=== PATIENT | female | born 1990 | race American Indian/Alaskan Native ===

== ENCOUNTER 2016-11-24 03:14 | Emergency (ER) | payer MEDICAID ==
[2016-11-24 02:34] LABS: Bilirubin,Urine NEG (Negative); Blood,Urine NEG (Negative); Ketones,Urine 20 mg/dL (Negative); Leukocyte Esterase,Urine NEG (Negative); Mucus,Urine 3+ /HPF; Nitrite,Urine NEG (Negative); Urobilinogen,Urine < 2.0 mg/dL (<2.0)
[~2016-11-24 03:14] MED LIST: LACTATED RINGERS 500 ML IV ONE
[2016-11-24 04:38] LABS: Basophils % (Auto) 0.7 % (0.0-1.8); Eosinophils % (Auto) 5.3 % (0.0-4.3); Hematocrit 35.6 % (30.3-42.9); Mean Corpuscular HGB Conc 31 % (30-34); Mean Corpuscular Volume 73 fl (79-97); Platelet Count 321 K/mm3 (140-440); Red Blood Count 4.87 M/mm3 (3.65-5.03); Red Cell Distribution Width 16.7 % (13.2-15.2); White Blood Count 13.3 K/mm3 (4.5-11.0)
[2016-11-24 04:44] LABS: Mean Corpuscular Hemoglobin 23 pg (28-32)
[2016-11-24 04:46] LABS: Anion Gap 20 mmol/L; Blood Urea Nitrogen 6 mg/dL (7-17); Carbon Dioxide 20 mmol/L (22-30); Chloride 103.2 mmol/L (98-107); Glucose 84 mg/dL (65-100); Sodium 139 mmol/L (137-145)
[2016-11-24] MEDS ORDERED: PROVENTIL IH ONE (05:16)
[2016-11-24] MEDS ORDERED: ATROVENT IH ONE (05:16)
--- NOTE | 2016-11-24 06:22 | Emergency Department Report ---
HPI - General Chief Complaint: Dyspnea/Respdistress Time Seen by Provider: 11/24/16 06:08 - HPI HPI: Room 22 The patient is a 26-year-old female presenting with a chief complaint shortness of breath. The patient states she "caught a cold" about 2 weeks ago with symptoms including rhinorrhea cough productive of yellow sputum and subjective fever. The patient states yesterday she developed increased work of breathing which usually happens whenever she catches a cold. The patient received nebulized prior to my arrival and states she feels better. Patient denies any complaints currently. Patient denies any history of chest pain, abdominal pain or vaginal bleeding Location: Lungs Duration: [see above] Quality: Increased work of breathing Severity: Moderate Modifying factors: [see above] Context: [see above] Mode of transportation: Unknown ED Past Medical Hx - Past Medical History Previous Medical History?: Yes Hx Asthma: Yes (LAST ATTACK WAS 10YR OLD; NO INHALER @HOME) - Family History Family history: no significant - Social History Smoking Status: Never Smoker Substance Use Type: None - Medications Home Medications: Home Medications Medication Instructions Recorded Confirmed Last Taken Type ALBUTEROL Inhaler [Proair] 2 puff IH QID PRN #1 inhalation 11/24/16 Unknown Rx Azithromycin [Zithromax Z-EUGENE] 0 mg PO DAILY #6 tab 11/24/16 Unknown Rx Vit-Fe Fumar-FA [ 1 tab PO QDAY 11/24/16 11/24/16 11/22/16 History Vitamin] ED Review of Systems ROS: Stated complaint: Other details as noted in HPI Comment: All other systems reviewed and negative Constitutional: fever (subjective) Eyes: denies: eye pain, eye discharge, vision change ENT: other (rhinorrhea) Respiratory: cough, wheezing, other (increased work of breathing) Cardiovascular: denies: chest pain, palpitations Endocrine: no symptoms reported Gastrointestinal: denies: abdominal pain, nausea, diarrhea Genitourinary: denies: urgency, dysuria, discharge Musculoskeletal: denies: back pain, joint swelling, arthralgia Skin: denies: rash, lesions Neurological: denies: headache, weakness, paresthesias Psychiatric: denies: anxiety, depression Hematological/Lymphatic: denies: easy bleeding, easy bruising Physical Exam - Physical Exam Vital Signs: Vital Signs 11/24/16 11/24/16 11/24/16 00:58 00:59 01:03 Temperature Pulse Rate 115 H 115 H 117 H Pulse Rate [ Bilateral Throughout] Respiratory Rate Respiratory Rate [Bilateral Throughout] Blood Pressure 133/71 Blood Pressure [Right] O2 Sat by Pulse 95 94 Oximetry 11/24/16 11/24/16 11/24/16 01:04 01:05 01:08 Temperature 98.1 F Pulse Rate 116 H 110 H Pulse Rate [ Bilateral Throughout] Respiratory 22 Rate Respiratory Rate [Bilateral Throughout] Blood Pressure Blood Pressure [Right] O2 Sat by Pulse 94 93 Oximetry 11/24/16 11/24/16 11/24/16 01:09 01:13 01:16 Temperature Pulse Rate 114 H 116 H 114 H Pulse Rate [ Bilateral Throughout] Respiratory Rate Respiratory Rate [Bilateral Throughout] Blood Pressure Blood Pressure [Right] O2 Sat by Pulse 93 95 93 Oximetry 11/24/16 11/24/16 11/24/16 01:18 01:22 01:34 Temperature Pulse Rate 111 H 114 H 121 H Pulse Rate [ Bilateral Throughout] Respiratory Rate Respiratory Rate [Bilateral Throughout] Blood Pressure Blood Pressure [Right] O2 Sat by Pulse 94 0 L 93 Oximetry 11/24/16 11/24/16 11/24/16 01:39 01:40 01:44 Temperature Pulse Rate 117 H 120 H 113 H Pulse Rate [ Bilateral Throughout] Respiratory Rate Respiratory Rate [Bilateral Throughout] Blood Pressure Blood Pressure [Right] O2 Sat by Pulse 94 94 95 Oximetry 11/24/16 11/24/16 11/24/16 01:46 01:49 01:54 Temperature Pulse Rate 120 H 121 H 108 H Pulse Rate [ Bilateral Throughout] Respiratory Rate Respiratory Rate [Bilateral Throughout] Blood Pressure Blood Pressure [Right] O2 Sat by Pulse 93 96 97 Oximetry 11/24/16 11/24/16 11/24/16 01:59 02:04 02:09 Temperature Pulse Rate 107 H 113 H 115 H Pulse Rate [ Bilateral Throughout] Respiratory Rate Respiratory Rate [Bilateral Throughout] Blood Pressure Blood Pressure [Right] O2 Sat by Pulse 96 97 97 Oximetry 11/24/16 11/24/16 11/24/16 02:14 02:16 02:19 Temperature Pulse Rate 107 H 115 H 109 H Pulse Rate [ Bilateral Throughout] Respiratory Rate Respiratory Rate [Bilateral Throughout] Blood Pressure Blood Pressure [Right] O2 Sat by Pulse 97 94 96 Oximetry 11/24/16 11/24/16 11/24/16 02:24 02:29 02:34 Temperature Pulse Rate 110 H 118 H 109 H Pulse Rate [ Bilateral Throughout] Respiratory Rate Respiratory Rate [Bilateral Throughout] Blood Pressure Blood Pressure [Right] O2 Sat by Pulse 97 98 97 Oximetry 11/24/16 11/24/16 11/24/16 02:39 02:44 02:49 Temperature Pulse Rate 111 H 105 H 107 H Pulse Rate [ Bilateral Throughout] Respiratory Rate Respiratory Rate [Bilateral Throughout] Blood Pressure Blood Pressure [Right] O2 Sat by Pulse 96 99 97 Oximetry 11/24/16 11/24/16 11/24/16 03:23 04:25 05:37 Temperature 98.1 F Pulse Rate 116 H 101 H Pulse Rate [ 89 Bilateral Throughout] Respiratory 24 20 Rate Respiratory 20 Rate [Bilateral Throughout] Blood Pressure 156/90 Blood Pressure 142/88 [Right] O2 Sat by Pulse 97 100 Oximetry 11/24/16 06:12 Temperature Pulse Rate Pulse Rate [ 110 H Bilateral Throughout] Respiratory Rate Respiratory 18 Rate [Bilateral Throughout] Blood Pressure Blood Pressure [Right] O2 Sat by Pulse Oximetry Physical Exam: GENERAL: The patient is well-developed well-nourished female lying on stretcher receiving nebulizer not appear to be in acute distress. [] HEENT: Normocephalic. Atraumatic. Extraocular motions are intact. Patient has moist mucous membranes. NECK: Supple. Trachea midline CHEST/LUNGS: Occasional rhonchi. There is no respiratory distress noted. HEART/CARDIOVASCULAR: Regular. There is no tachycardia. There is no gallop rub or murmur. ABDOMEN: Abdomen is soft, nontender. Patient has normal bowel sounds. The patient is gravid SKIN: There is no rash. There is no edema. There is no diaphoresis. NEURO: The patient is awake, alert, and oriented. The patient is cooperative. The patient has normal speech MUSCULOSKELETAL: There is no evidence of acute injury. ED Course Vital Signs 11/24/16 11/24/16 11/24/16 00:58 00:59 01:03 Temperature Pulse Rate 115 H 115 H 117 H Pulse Rate [ Bilateral Throughout] Respiratory Rate Respiratory Rate [Bilateral Throughout] Blood Pressure 133/71 Blood Pressure [Right] O2 Sat by Pulse 95 94 Oximetry 11/24/16 11/24/16 11/24/16 01:04 01:05 01:08 Temperature 98.1 F Pulse Rate 116 H 110 H Pulse Rate [ Bilateral Throughout] Respiratory 22 Rate Respiratory Rate [Bilateral Throughout] Blood Pressure Blood Pressure [Right] O2 Sat by Pulse 94 93 Oximetry 11/24/16 11/24/16 11/24/16 01:09 01:13 01:16 Temperature Pulse Rate 114 H 116 H 114 H Pulse Rate [ Bilateral Throughout] Respiratory Rate Respiratory Rate [Bilateral Throughout] Blood Pressure Blood Pressure [Right] O2 Sat by Pulse 93 95 93 Oximetry 11/24/16 11/24/16 11/24/16 01:18 01:22 01:34 Temperature Pulse Rate 111 H 114 H 121 H Pulse Rate [ Bilateral Throughout] Respiratory Rate Respiratory Rate [Bilateral Throughout] Blood Pressure Blood Pressure [Right] O2 Sat by Pulse 94 0 L 93 Oximetry 11/24/16 11/24/16 11/24/16 01:39 01:40 01:44 Temperature Pulse Rate 117 H 120 H 113 H Pulse Rate [ Bilateral Throughout] Respiratory Rate Respiratory Rate [Bilateral Throughout] Blood Pressure Blood Pressure [Right] O2 Sat by Pulse 94 94 95 Oximetry 11/24/16 11/24/16 11/24/16 01:46 01:49 01:54 Temperature Pulse Rate 120 H 121 H 108 H Pulse Rate [ Bilateral Throughout] Respiratory Rate Respiratory Rate [Bilateral Throughout] Blood Pressure Blood Pressure [Right] O2 Sat by Pulse 93 96 97 Oximetry 11/24/16 11/24/16 11/24/16 01:59 02:04 02:09 Temperature Pulse Rate 107 H 113 H 115 H Pulse Rate [ Bilateral Throughout] Respiratory Rate Respiratory Rate [Bilateral Throughout] Blood Pressure Blood Pressure [Right] O2 Sat by Pulse 96 97 97 Oximetry 11/24/16 11/24/16 11/24/16 02:14 02:16 02:19 Temperature Pulse Rate 107 H 115 H 109 H Pulse Rate [ Bilateral Throughout] Respiratory Rate Respiratory Rate [Bilateral Throughout] Blood Pressure Blood Pressure [Right] O2 Sat by Pulse 97 94 96 Oximetry 11/24/16 11/24/16 11/24/16 02:24 02:29 02:34 Temperature Pulse Rate 110 H 118 H 109 H Pulse Rate [ Bilateral Throughout] Respiratory Rate Respiratory Rate [Bilateral Throughout] Blood Pressure Blood Pressure [Right] O2 Sat by Pulse 97 98 97 Oximetry 11/24/16 11/24/16 11/24/16 02:39 02:44 02:49 Temperature Pulse Rate 111 H 105 H 107 H Pulse Rate [ Bilateral Throughout] Respiratory Rate Respiratory Rate [Bilateral Throughout] Blood Pressure Blood Pressure [Right] O2 Sat by Pulse 96 99 97 Oximetry 11/24/16 11/24/16 11/24/16 03:23 04:25 05:37 Temperature 98.1 F Pulse Rate 116 H 101 H Pulse Rate [ 89 Bilateral Throughout] Respiratory 24 20 Rate Respiratory 20 Rate [Bilateral Throughout] Blood Pressure 156/90 Blood Pressure 142/88 [Right] O2 Sat by Pulse 97 100 Oximetry 11/24/16 06:12 Temperature Pulse Rate Pulse Rate [ 110 H Bilateral Throughout] Respiratory Rate Respiratory 18 Rate [Bilateral Throughout] Blood Pressure Blood Pressure [Right] O2 Sat by Pulse Oximetry ED Medical Decision Making - Lab Data Result diagrams: 11/24/16 03:50 11/24/16 03:50 Laboratory Tests 11/24/16 11/24/16 11/24/16 01:25 03:50 03:50 WBC 13.3 H RBC 4.87 Hgb 11.0 Hct 35.6 MCV 73 L MCH 23 L MCHC 31 RDW 16.7 H Plt Count 321 Lymph % (Auto) 20.9 [place] % (Auto) 7.7 H Eos % (Auto) 5.3 H Baso % (Auto) 0.7 Lymph # 2.8 [place] # 1.0 H Eos # 0.7 H Baso # 0.1 Seg Neutrophils % 65.4 Seg Neutrophils # 8.7 H Sodium 139 Potassium 4.0 Chloride 103.2 Carbon Dioxide 20 L Anion Gap 20 BUN 6 L Creatinine 0.5 L Estimated GFR > 60 BUN/Creatinine Ratio 12.00 Glucose 84 Calcium 9.0 Troponin T < 0.010 Urine Color Yellow Urine Turbidity Clear Urine pH 5.0 Ur Specific [place] 1.034 H Urine Protein 100 mg/dl Urine Glucose (UA) Neg Urine Ketones 20 Urine Blood Neg Urine Nitrite Neg Urine Bilirubin Neg Urine Urobilinogen < 2.0 Ur Leukocyte Esterase Neg Urine WBC (Auto) 2.0 Urine RBC (Auto) 2.0 U Epithel Cells (Auto) < 1.0 Calcium Oxalate Crystal 3+ Urine Mucus 3+ Influenza negative - Differential Diagnosis URI, influenza, bronchitis, reactive airway disease Critical care attestation.: If time is entered above; I have spent that time in minutes in the direct care of this critically ill patient, excluding procedure time. ED Disposition Clinical Impression: Acute bronchitis, Disposition: DC-01 TO HOME OR SELFCARE Is pt being admited?: No Does the pt Need Aspirin: No Condition: Stable Instructions: Labor and Delivery General Instructions, Labor/ Labor Instructions, Movement (DC), Acute Bronchitis (ED) Additional Instructions: Return to the emergency department immediately should you develop worsening symptoms, fever, inability to tolerate food or liquid or any other concerns. Prescriptions: ALBUTEROL Inhaler [Proair] 2 puff IH QID PRN #1 inhalation PRN Reason: Shortness Of Breath Azithromycin [Zithromax Z-EUGENE] 0 mg PO DAILY #6 tab Referrals: PRIMARY CARE, [Primary Care Provider] - 7 Days Forms: [facility] Discharge Summary Time of Disposition: 07:58
[2016-11-24 11:28] VITALS: BP 111/75
== END 2016-11-24 08:40 | disposition home or self-care (01) ==
LOC: ED 03:14 → EDSTATUS 03:18 → ED 08:40
DX: O99.519 Diseases of the respiratory system complicating pregnancy, unspecified trimester (principal); J20.9 Acute bronchitis, unspecified; J45.909 Unspecified asthma, uncomplicated; Z3A.00 Weeks of gestation of pregnancy not specified
CPT/HCPCS: 36415; 59025; 80048; 81001; 84484; 85025; 87400; 93005; 93010; 94644; 99284

== ENCOUNTER 2017-03-11 07:32 | Inpatient (IN) | payer MEDICAID ==
[2017-03-11] MEDS ORDERED: ANCEF/STERILE WATER 2 GM/20 ML 2 GM/20 ML SYRINGE IV NR (08:00)
[2017-03-11] MEDS ORDERED: REGLAN IV NR (08:00)
[2017-03-11] MEDS ORDERED: BICITRA PO NR (08:00)
[2017-03-11] MEDS ORDERED: PITOCin/NS 20 UNIT/1000ML DRIP 20 UNITS/1,000 ML BAG IV SCH ×2 (08:00→12:00)
[2017-03-11] MEDS ORDERED: PEPCID IV NR (08:00)
[2017-03-11] MEDS: LACTATED RINGERS 1,000 ML IV SCH ×2 (08:10→15:00)
--- NOTE | 2017-03-11 08:10 | History and Physical Report ---
History of Present Illness Date of examination: 03/11/17 Date of admission: 03/11/17 07:32 Chief complaint: SIUP at 39 weeks and 2 days for elective repeat C/section. History of present illness: Patient is a 27 year old , LMP 06/09/16, EDC 03/16/17 at 39 weeks and 2 days not in labor who is admitted for elective repeat C/section. She denies any contractions, fluid leakage or bleeding per vagina. She reports good movement. PMHx: Morbid obesity, asthma, vit D deficiency, anemia, gestational HTN. PSHx: C/section x 1. Allergy: NKDA social Hx: denies. ObsHx: 03/01/16-Primary C/section for failure to dilate and descend- [facility]. Past History Past Medical History: asthma, other (morbid obesity, anemia, asthma, gest HTN) Past Surgical History: section Social history: no significant social history - Obstetrical History Expected Date of Delivery: 03/16/17 Actual Gestation: 39 Week(s) 2 Day(s) : 2 Para: 1 Number of Living Children: 1 Medications and Allergies Allergies Allergy/AdvReac Type Severity Reaction Status Date / Time No Known Allergies Allergy Verified 01/01/14 11:47 Home Medications Medication Instructions Recorded Confirmed Last Taken Type Vit-Fe Fumar-FA [ 1 tab PO QDAY 11/24/16 03/11/17 1 Day Ago History Vitamin] ~03/10/17 Active Meds: Active Medications Citric Acid/Sodium Citrate (Bicitra) 30 ml PO ONCE NR Stop: 03/11/17 17:00 Famotidine (Pepcid) 20 mg IV ONCE NR Stop: 03/11/17 17:00 Cefazolin Sodium (Ancef/Sterile Water 2 Gm/20 Ml) 2 gm in 20 mls @ 80 mls/hr IV PREOP NR PRN Reason: Protocol Stop: 03/11/17 17:00 Lactated Ringer's (Lactated Ringers) 1,000 mls @ 2,250 mls/hr IV PREOP JASON Stop: 03/12/17 08:27 Oxytocin/Sodium Chloride (Pitocin/Ns 20 Unit/1000ml Drip) 20 units in 1,000 mls @ 0 mls/hr IV TITR JASON PRN Reason: As Directed Influenza Virus Vaccine Quadrival (Fluarix Quad [id number](36 Mos+) 0.5 ml IM .ONCE ONE Stop: 03/12/17 12:01 Metoclopramide HCl (Reglan) 10 mg IV ONCE NR Stop: 03/11/17 17:00 - Physical Exam Cardiovascular: Normal S1, Normal S2 Lungs: Positive: Clear to auscultation Vulva: both: normal Adnexa: both: normal Deep Tendon Reflex Grade: Normal +2 - Obstetrical FHR: category 1 Uterine Contraction Monitor Mode: External Cervical Dilatation: 1 Cervical Effacement Percentage: 30 station: -2 Uterine Contraction Pattern: Absent Results All other labs normal. Assessment and Plan - Patient Problems (1) 39 weeks gestation of Current Visit: Yes Status: Acute (2) Previous section Current Visit: Yes Status: Acute Plan to address problem: For elective repeat C/section. (3) Declines (vaginal after ) trial Current Visit: Yes Status: Acute Plan to address problem: Admit to L&D. IV fluid, admitting labs, toxemia labs. FHT and toco monitoring. NPO Patient is for repeat C/section. Risks, benefits of the procedure were discussed in detail with the patient which included but not limited to the risks of infection, hemorrhage requiring blood transfusion, injury to the bowel , bladder and blood vessels. She expressed understanding, her questions were answered, she gave her informed consent. (4) Morbid obesity due to excess calories Current Visit: Yes Status: Acute (5) Anemia Current Visit: Yes Status: Acute Qualifiers: Anemia type: iron deficiency (6) Gestational HTN Current Visit: Yes Status: Acute Plan to address problem: Toxemia labs
[2017-03-11 08:26] LABS: Basophils % (Auto) 0.4 % (0.0-1.8); Eosinophils % (Auto) 1.5 % (0.0-4.3); Mean Corpuscular HGB Conc 30 % (30-34); Platelet Count 281 K/mm3 (140-440); Red Blood Count 5.12 M/mm3 (3.65-5.03); Red Cell Distribution Width 19.7 % (13.2-15.2); White Blood Count 8.7 K/mm3 (4.5-11.0)
[2017-03-11 08:27] LABS: Hemoglobin 10.2 gm/dl (10.1-14.3); Mean Corpuscular Hemoglobin 20 pg (28-32); Mean Corpuscular Volume 66 fl (79-97)
--- NOTE | 2017-03-11 08:35 | Anesthesia Consultation ---
Anesthesia Consult and Med Hx Date of service: 03/11/17 - Airway Anesthetic Teeth Evaluation: Good ROM Head & Neck: Adequate Mental/Hyoid Distance: Adequate Mallampati Class: Class III - Pre-Operative Health Status ASA Pre-Surgery Classification: ASA3 Proposed Anesthetic Plan: Epidural, Spinal - Pulmonary Hx Asthma: Yes (LAST ATTACK WAS 10YR OLD; NO INHALER @HOME) COPD: No Hx Pneumonia: No - Cardiovascular System Hx Hypertension: No - Central Nervous System Hx Seizures: No Hx Psychiatric Problems: No - Endocrine Hx Renal Disease: No Hx End Stage Renal Disease: No Hx Hypothyroidism: No Hx Hyperthyroidism: No - Hematic Hx Anemia: No Hx Sickle Cell Disease: No - Other Systems Hx Alcohol Use: No Hx Obesity: Yes (BMI 56.5)
--- NOTE | 2017-03-11 08:36 | Anesthesia Day of Surgery ---
Anesthesia Day of Surgery - Day of Surgery Patient Examined: Yes Patient H&P Reviewed: Yes Patient is NPO: Yes
[2017-03-11 08:52] LABS: Alanine Aminotransferase 8 units/L (7-56); Lactate Dehydrogenase 142 units/L (91-180); Uric Acid 4.3 mg/dL (3.5-7.6)
[2017-03-11] MEDS ORDERED: PHENERGAN PO PRN (09:00)
[2017-03-11] MEDS ORDERED: BENADRYL IV PRN (09:00)
[2017-03-11] MEDS ORDERED: PHENERGAN PR PRN (09:00)
[2017-03-11] MEDS ORDERED: ZOFRAN IV PRN ×2 (09:00→11:10)
[2017-03-11] MEDS ORDERED: NARCAN 0.4 MG/1 ML IV PRN ×2 (09:00→11:10)
[2017-03-11] MEDS ORDERED: SODIUM CHLORIDE FLUSH SYRINGE 10 ML IV PRN (09:00)
[2017-03-11] MEDS ORDERED: MORPHINE ONE (09:29)
[2017-03-11] MEDS ORDERED: NEO SYNEPHRINE/NS Syringe(OR USE) IV ONE ×3 (09:56→10:19)
[2017-03-11] MEDS ORDERED: NACL 0.9% IR ONE (10:02)
[2017-03-11] MEDS ORDERED: WATER FOR IRRIG STERILE IR ONE (10:02)
[2017-03-11] MEDS ORDERED: ePHEDrine SULFATE ONE (10:07)
[2017-03-11] MEDS ORDERED: NACL 0.9% 1000 ML 1,000 ML ONE ×2 (10:18→11:01)
[2017-03-11] MEDS ORDERED: ZOFRAN ONE (10:33)
[2017-03-11] MEDS ORDERED: DILAUDID ONE (10:46)
[2017-03-11] MEDS ORDERED: MORPHINE IV PRN (11:10)
[2017-03-11] MEDS ORDERED: TUCKS PAD TP PRN (11:10)
[2017-03-11] MEDS ORDERED: LANSINOH TP PRN (11:10)
[2017-03-11] MEDS ORDERED: MYLICON PO PRN (11:10)
--- NOTE | 2017-03-11 11:29 | Operative Report ---
Operative Report Operative Report: Preoperative diagnosis: 1. SIUP at 39 weeks and 2 days not in labor. 2. Previous section. 3. Refused . 4. Morbid obesity. 5. Anemia. 6. Gestational hypertension. 7. Asthma Postoperative diagnosis: Same as preoperative diagnosis Procedure: Repeat LTCS Surgeon: Dr. Leahy Fax Machine Repairer: none Anesthesia: spinal EBL: 800 cc IVF: 2700 cc RL Urine: 50 cc clear Complications: none Intra-operative findings: 1. Female found in an OMKAR position, delivered at 10:23 AM, Apgars 9 at 1 minutes and 9 at 5 minutes, weight 8 lbs. 6 oz. 2. Normal uterus, fallopian tubes, and ovaries. Procedure details: Risks, benefits, and alternatives of the procedure were discussed in detail with the patient which included but not limited to the risk of infection, hemorrhage requiring blood transfusion, and injury to the bowel or bladder and blood vessels. The patient expressed understanding, her questions were answered , she gave informed consent. The patient was taken to the operating room with an IV fluid infusing Ringer's lactate. In the operating room, she was placed in the sitting position and given spinal anesthesia. Then, she was placed in the dorsal supine position with a leftward tilt. Venodyne boots and Barber catheter were placed. The abdomen was washed, and she was prepared and draped in the usual sterile fashion. A confirming adequate spinal anesthesia, a Pfannenstiel skin incision was made in the lower abdomen about 2 cm above the pubic symphysis at the level of the previous scar. That incision was taken down to the underlying fascia using the Bovie. The fascia was opened bilaterally in a curvilinear fashion using the Bovie. 2 straight Kocker clamps were used to grasp the upper edge of the fascia from which the underlying rectus abdominis muscle was dissected off using the Bovie. A similar procedure was done with the lower edge of the fascia to dissect the underlying rectus abdominis muscle. The muscle was opened from the midline bluntly by pulling. The parietal peritoneum was grasped with 2 hemostat clamps and entered sharply using Metzenbaum scissors. A quick survey of the anatomy revealed a gravid uterus, normal ovaries, and fallopian tubes bilaterally. A bladder flap was created. Trace'O retractor was placed at the incision for proper visualization. Then, a low transverse incision was made in the lower uterine segment using the scalpel and extended bilaterally in a curvilinear fashion using bandage scissors. The amniotic sac was ruptured and there was copious amount of clear amniotic fluid. The infant was found in an OMKAR position. The head was delivered atraumatically. This was followed by the delivery of the shoulders and rest of the body atraumatically at 10:23 AM. The cord was clamped 2 and cut and the was handed off to the waiting resistance welder. The was a female, Apgars were 9 at 1 minute and 9 at 5 minutes, weighs 8 pounds and 6 ounces. Cord blood was collected. The placenta was delivered manually and it was complete with a three-vessel cord. The uterine cavity was cleaned of clots and debris using dry lap sponges. The uterine incision was repaired in a running locked fashion using 0 Vicryl sutures. A second layer of imbrication was placed. The gutters were cleaned of clots and debris using dry lap sponges. After assuring adequate hemostasis, the instruments were removed from the abdomen. The fascia was closed in a running fashion using 0 Vicryl sutures. The subcutaneous adipose tissue was reapproximated using 2-0 chromic sutures. The skin was closed with fanta. Sterile dressing was placed. The counts of laps, needles, sponges, and instruments were correct 2. The patient tolerated the procedure well. She was taken to the recovery room in stable condition.
[2017-03-11] MEDS ORDERED: SODIUM CHLORIDE FLUSH SYRINGE 10 ML IV SCH (12:00)
[2017-03-11] MEDS: TORADOL IV PRN ×2 (12:13→18:05)
[2017-03-12 00:14] LABS: Hematocrit 29.8 % (30.3-42.9)
[2017-03-12 00:15] LABS: Hemoglobin 8.9 gm/dl (10.1-14.3)
[2017-03-12] MEDS ORDERED: BENADRYL PO PRN (02:04)
--- NOTE | 2017-03-12 04:18 | Progress Note ---
Assessment and Plan A: POD #1 Asymptomatic Anemia P: Follow Routine orders Infed 100mg IM x 1 dose Ferrous Sulfate 325mg PO TID Subjective - Subjective Date of service: 03/12/17 Patient reports: appetite normal, voiding normally, pain well controlled, flatus , ambulating normally [place]: doing well, bottle feeding (and ) Objective - Vital Signs Latest vital signs: Vital Signs Temp Pulse Resp BP BP Pulse Ox 03/12/17 00:00 98.6 F 66 16 110/68 03/11/17 20:30 98.6 F 77 16 101/76 03/11/17 18:54 112 H 20 104/58 97 03/11/17 12:45 97.6 F 115 H 22 131/64 03/11/17 12:17 104 H 15 108/70 98 03/11/17 12:02 106 H 15 121/50 99 03/11/17 11:47 111 H 15 120/66 97 03/11/17 11:32 105 H 14 108/61 97 03/11/17 11:27 104 H 18 132/75 98 03/11/17 11:22 109 H 18 115/59 100 03/11/17 11:17 97.6 F 112 H 16 125/56 100 03/11/17 08:27 31 L 86 Intake and Output 03/11/17 03/11/17 03/12/17 14:59 22:59 06:59 Intake Total 4000 300 Output Total 700 350 Balance 3300 -350 300 Intake: IV 4000 Lactated Ringers 1,000 ml 1000 @ 2250 mls/hr IV PREOP [facility] Rx#:[id number] Intake, Free Water 300 Output: Urine 700 350 Indwelling Catheter 350 Uretheral (Barber) 350 Other: Total, Output Amount 350 Weight 158.757 kg Patient Weight 03/12/17 06:59 Weight 158.757 kg - Exam Breasts: Present: normal Cardiovascular: Present: Regular rate Lungs: Present: Clear to auscultation, Normal air movement Abdomen: Present: normal appearance, soft, normal bowel sounds Uterus: Present: normal, firm, fundal height below umbilicus Extremities: Present: normal Incision: Present: dry, dressed - Labs Labs: Abnormal lab results 03/11/17 03/11/17 03/11/17 Range/Units 08:10 08:10 23:47 RBC 5.12 H (3.65-5.03) M/mm3 Hgb 8.9 L (10.1-14.3) gm/dl Hct 29.8 L (30.3-42.9) % MCV 66 L (79-97) fl MCH 20 L (28-32) pg RDW 19.7 H (13.2-15.2) % [place] % (Auto) 10.7 H (0.0-7.3) % [place] # 0.9 H (0.0-0.8) K/mm3 Creatinine 0.5 L (0.7-1.2) mg/dL
[2017-03-12] MEDS: MOTRIN PO PRN ×3 (04:31→22:33)
[2017-03-12] MEDS ORDERED: INFED IM ONE (04:35)
[2017-03-12] MEDS: FEOSOL PO SCH ×3 (09:42→23:46)
[2017-03-12] MEDS: SENOKOT PO PRN (09:42)
[2017-03-12] MEDS ORDERED: Fluarix Quad 2017-2018(36 MOS+ IM ONE (12:00)
[2017-03-12] MEDS: PERCOCET 5/325 PO PRN ×2 (12:21→22:33)
[2017-03-13] MEDS: PERCOCET 5/325 PO PRN ×2 (08:30→17:32)
[2017-03-13] MEDS: FEOSOL PO SCH ×3 (08:31→21:41)
[2017-03-13] MEDS: MOTRIN PO PRN ×2 (08:31→17:31)
[2017-03-13] MEDS: SENOKOT PO PRN (08:31)
--- NOTE | 2017-03-13 09:23 | Progress Note ---
Assessment and Plan A: POD 2 - stable Anemia - asymptomatic P: Continue routine postop orders Continue iron therapy Discharge pt to home 03/14/17 Subjective - Subjective Date of service: 03/13/17 Principal diagnosis: Repeat LTCS Patient reports: appetite normal, voiding normally, pain well controlled, flatus , ambulating normally : doing well, nursing well, bottle feeding Objective - Vital Signs Latest vital signs: Vital Signs Temp Pulse Resp BP Pulse Ox 03/13/17 00:45 97.7 F 106 H 20 112/61 97 03/12/17 17:15 98.3 F 101 H 20 125/75 94 03/12/17 09:22 98.8 F 98 H 22 110/73 Intake and Output 03/12/17 03/13/17 03/13/17 23:59 07:59 15:59 Intake Total 360 480 Balance 360 480 Intake: Oral 360 480 Other: Total, Intake Amount 240 240 # Voids Void 1 1 - Exam Breasts: Present: normal Cardiovascular: Present: Regular rate, Normal S1, Normal S2, No murmurs Lungs: Present: Clear to auscultation, Normal air movement Abdomen: Present: normal appearance, soft Vulva: both: normal Uterus: Present: normal, firm, fundal height below umbilicus Extremities: Present: edema (2+ BLE) Incision: Present: normal, dry, intact
--- NOTE | 2017-03-13 09:25 | Discharge Summary ---
Providers - Providers Date of Admission: 03/11/17 07:32 Date of discharge: 03/14/17 Attending physician: JAY MAHER MD Primary care physician: JAY MAHER MD Hospitalization Reason for admission: section Delivery: Procedure: section, repeat low transverse Incision: normal, dry, intact Other procedures: none Discharge diagnosis: IUP at term delivered [place] baby: female Hospital course: Complicated by anemia of puerperium. On ferrous sulfate 325mg PO TID. S/P Infed 100mg IM x1 Condition at discharge: Stable Disposition: [id number] TO HOME OR SELFCARE Plan - Discharge Medications Prescriptions: Ferrous Sulfate [Feosol 325 MG tab] 325 mg PO TID #90 tablet Ibuprofen [Motrin 800 MG tab] 800 mg PO Q6H PRN #30 tablet PRN Reason: Pain, Mild (1-3) - Provider Discharge Summary Activity: routine, no sex for 6 weeks, no heavy lifting 4 weeks, no strenuous exercise Diet: routine Instructions: routine Additional instructions: [] Smoking cessation referral if applicable(refer to patient education folder for contact #) [] Refer to [facility]'s [facility] Booklet Call your doctor immediately for: * Fever > 100.5 * Heavy vaginal bleeding ( >1 pad per hour) * Severe persistent headache * Shortness of breath * Reddened, hot, painful area to leg or breast * Drainage or odor from incision. * Keep incision clean and dry at all times and follow doctor's instructions regarding bathing/showering - Follow up plan Follow up: JAY MAHER MD [Primary Care Provider] - 7 Days (Follow up with Dr. Maher in 1 week for incision check/fanta removal and in 6 weeks for PP exam)
[2017-03-14] MEDS: MOTRIN PO PRN ×2 (03:51→12:43)
[2017-03-14] MEDS: PERCOCET 5/325 PO PRN ×2 (03:51→09:34)
[2017-03-14] MEDS: FEOSOL PO SCH (09:34)
[2017-03-14 11:20] VITALS: BP 128/70
== END 2017-03-14 13:00 | disposition home or self-care (01) | DRG 765 ==
LOC: APU 07:32 → OB 13:48
PROVIDERS: ADMIT Obstetrics & Gynecology; ATTEND Obstetrics & Gynecology
PROC: 10D00Z1 Extraction of Products of Conception, Low, Open Approach (ICD-10-PCS; principal; 2017-03-11)
PROC: 3E0234Z Introduction of Serum, Toxoid and Vaccine into Muscle, Percutaneous Approach (ICD-10-PCS; 2017-03-11)
DX: O34.211 Maternal care for low transverse scar from previous cesarean delivery (principal); Z68.43 Body mass index [BMI] 50.0-59.9, adult; O13.4 Gestational [pregnancy-induced] hypertension without significant proteinuria, complicating childbirth; Z3A.39 39 weeks gestation of pregnancy; O99.52 Diseases of the respiratory system complicating childbirth; Z37.0 Single live birth; E66.01 Morbid (severe) obesity due to excess calories; J45.909 Unspecified asthma, uncomplicated; D64.9 Anemia, unspecified; Z23 Encounter for immunization; O99.214 Obesity complicating childbirth; O99.03 Anemia complicating the puerperium
CPT/HCPCS: 36415; 82565; 83615; 84450; 84460; 84550; 85014; 85018; 85025; 85027; 86850; 86900; 86901; 90686; 99211; A6250; G0463; J0690; J1170; J1200; J1750; J1885; J2270; J2370; J2405; J2590; J2765; J7030; J7120